=== PATIENT | male | born 1975 | race Caucasian/White ===

== ENCOUNTER 2022-06-28 14:46 | Outpatient (CLI) | payer BC, SELFPAY ==
[2022-06-28 20:00] LABS: Kit Draw Collected
== END 2022-06-28 14:47 | disposition home or self-care (01) ==
LOC: ANHGOSHLAB 14:48
PROVIDERS: PCP Family Medicine; Visit Provider Family Medicine
DX: E78.2 Mixed hyperlipidemia (principal)
CPT/HCPCS: 36415

== ENCOUNTER 2022-08-19 01:22 | Day surgery (SDC) | payer BC, SELFPAY ==
[2022-08-08 11:02] VITALS: BMI 29.0
--- NOTE | 2022-08-19 07:48 | WPDANESEPPF ---
Anes - Initial Pre Proc Eval Procedure: Operation Date: 08/19/22 09:00 Proposed Procedures p Screening Colonoscopy - Edinson Hannon MD Date/Time: 08/19/22 07:48 Surgeon: Edinson Hannon MD Pre Op Diagnosis: neoplasm screening Patient Data Age: 47 Gender: M Height: 1.83 m Weight: 97 kg Allergies Allergy/AdvReac Type Severity Reaction Status Date / Time Penicillins Allergy Unknown hives Verified 08/19/22 08:08 acetaminophen [From Wygesic] AdvReac Nausea and Verified 08/19/22 08:08 Vomiting adhesive tape AdvReac Rash Verified 08/19/22 08:08 propoxyphene [From [facility]gesic] AdvReac Nausea and Verified 08/19/22 08:08 Vomiting Home Medications Medication Instructions Recorded Confirmed Type lansoprazole 15 mg capsule,delayed 15 mg PO DAILY #90 caps 06/28/22 08/19/22 Rx release Patient hx anesthesia problems: none Family hx anesthesia problems: none Results Review: All pre-operative results and documents have been reviewed as part of the pre-operative evaluation. [facility] Past Medical History Medical History (Updated 08/19/22 @ 07:48 by Nura Zimmerman DO) Gastro-esophageal reflux disease without esophagitis Lung collapse teenager. bilateral/ sclerosing Social History Social History (Updated 06/28/22 @ 18:45 by Elena Fernandez MD) Smoking status: Former smoker Tobacco type: cigarettes Alcohol intake: never Substance use: never Lack of Transportation: No Lack of Food: Never True Current Housing: I Have Housing Concerned About Future Housing: No Difficulty Paying Gas/Electric Bills: No Difficulty Paying for Meds: No Currently Unemployed: No Education: Associate Degree Difficulty w/ Childcare or Family Care: No Living arrangements: with family Spiritual care concerns: No Anes - Eval Final PreProcedure Day of Procedure 08/19/22 07:48 Patient weight: overweight Heart: regular rate and rhythm Lungs: clear to auscultation Airway: Mallampati scale class II Neurological: alert and oriented Last oral intake: >/= 8 hours ASA classification: II Emergent: no Anesthetic plan: proceed Anesthesia type and monitoring: general GIVS and standard monitoring Results Review: All pre-operative results and documents have been reviewed as part of the pre-operative evaluation. Informed Consent: The patient's anesthetic plan and its attendant risks and benefits were discussed with the patient/family/POA. Questions were solicited and answers provided to the satisfaction of the patient/family/POA.
[2022-08-19 08:09] VITALS: BP 141/101; PULSE 70; RESP 16; TEMP 36.2; O2SAT 100; BMI 28.3
[2022-08-19] MEDS: LACTATED RINGERS 1,000 ML 150 ML IV CONT (08:19)
--- NOTE | 2022-08-19 08:49 | PM.HPGS ---
History of Present Illness History of Present Illness Consent: Risks, benefits, and alternatives have been discussed and questions answered. Patient agrees to proceed with procedure. Chief complaint: neoplasm screening Narrative: Prosper Merrill is a 47 year old male here for first screening colonoscopy Review of Systems Constitutional: Constitutional: Denies headache(s) and Denies weakness Eyes: Eyes: Denies blurry vision ENT: Reports Normal hearing present, Denies headache(s) and Denies neck pain Cardiovascular: Cardiovascular: Denies chest pain and Denies dyspnea Respiratory: Respiratory: Denies dyspnea Gastrointestinal: Gastrointestinal: Reports no additional gastrointestinal complaints Genitourinary: Genitourinary: Denies dysuria Musculoskeletal: Musculoskeletal: Denies neck pain Integumentary/Breasts: Skin/Breast: Denies dry skin Neurologic: Reports Normal hearing present, Denies headache(s) and Denies weakness Psychiatric: Psychiatric: Denies anxiety Endocrine: Endocrine: Denies change in body appearance Hematologic/Lymphatic: Hematologic/Lymphatic: Denies easy bleeding Allergic/Immunologic: Allergic/Immunologic: Denies urticaria PMFSH Past Medical History Medical History (Updated 08/19/22 @ 08:51 by Edinson Hannon MD) Colon cancer screening Gastro-esophageal reflux disease without esophagitis Lung collapse teenager. bilateral/ sclerosing Social History Social History (Updated 06/28/22 @ 18:45 by Elena Frenandez MD) Smoking status: Former smoker Tobacco type: cigarettes Alcohol intake: never Substance use: never Lack of Transportation: No Lack of Food: Never True Current Housing: I Have Housing Concerned About Future Housing: No Difficulty Paying Gas/Electric Bills: No Difficulty Paying for Meds: No Currently Unemployed: No Education: Associate Degree Difficulty w/ Childcare or Family Care: No Living arrangements: with family Spiritual care concerns: No Meds Home Medications and Allergies Home Medications Medication Instructions Recorded Confirmed Type lansoprazole 15 mg capsule,delayed 15 mg PO DAILY #90 caps 06/28/22 08/19/22 Rx release Allergies Allergy/AdvReac Type Severity Reaction Status Date / Time Penicillins Allergy Unknown hives Verified 08/19/22 08:08 acetaminophen [From Wygesic] AdvReac Nausea and Verified 08/19/22 08:08 Vomiting adhesive tape AdvReac Rash Verified 08/19/22 08:08 propoxyphene [From Wygesic] AdvReac Nausea and Verified 08/19/22 08:08 Vomiting Vital Signs Vital Signs - 24 hr 08/19/22 08:09 Temperature 97.1 F L Pulse Rate 70 Respiratory Rate 16 Blood Pressure 141/101 H Pulse Oximetry 100 Oxygen Delivery Room Air Exam Const: General: comfortable and no acute distress HENMT: Face/Nose/Sinus: Normal nares present Eyes: General: appearance normal, both eyes and all related structures Neck: Neck: no JVD Resp: Auscultation: clear to auscultation bilaterally Cardio: Rate: regular rate Rhythm: regular rhythm GI: Inspection: non-distended GI Palp: Yes Soft to palpation Skin: General skin exam: normal color Neuro: General: gait normal Speech: normal speech Extrem: General: normal to inspection Psych: Mental Status: mental status grossly normal Assessment and Plan Assessment and plan (1) Colon cancer screening: Code(s): Z12.11 - Encounter for screening for malignant neoplasm of colon Status: Acute Assessment and Plan: colonoscopy
[2022-08-19 09:10] VITALS: BP 97/68; PULSE 84; RESP 19; O2SAT 93
[2022-08-19 09:20] VITALS: BP 106/74; PULSE 83; RESP 19; O2SAT 92
[2022-08-19 09:26] VITALS: BP 127/84; PULSE 73; RESP 22; O2SAT 98
== END 2022-08-19 09:38 | disposition home or self-care (01) ==
PROVIDERS: PCP Family Medicine; Visit Provider Internal Medicine Gastroenterology
PROC: 0DJD8ZZ Inspection of Lower Intestinal Tract, Via Natural or Artificial Opening Endoscopic (ICD-10-PCS; CPT 45378; principal; 2022-08-19 09:00)
DX: Z12.11 Encounter for screening for malignant neoplasm of colon (principal); D12.2 Benign neoplasm of ascending colon; K64.8 Other hemorrhoids; K21.9 Gastro-esophageal reflux disease without esophagitis; Z87.891 Personal history of nicotine dependence
CPT/HCPCS: 45385; 88305; J2704; J7120

== ENCOUNTER → 2022-11-04 08:57 | Outpatient (CLI) | payer BC, SELFPAY ==
--- NOTE | ~2022-11-04 | XR_ITS ---
EXAMINATION: XR foot RT min 3V DATE: 11/04/2022 09:07 INDICATION: Right foot pain. TECHNIQUE: 4 views of right foot were obtained. COMPARISON: None. FINDINGS: Bone alignment is normal. No fracture. There is mild osteoarthritis of first metatarsophala ngeal joint and some of the interphalangeal joints and talonavicular joint. There is an enthesophyte at posterior aspect of calcaneal tuberosity. IMPRESSION: 1. Mild polyarticular osteoarthritis. Reviewed, dictated and finalized at location A.
== END ==
PROVIDERS: PCP Family Medicine; Visit Provider Physician Assistant
DX: M10.9 Gout, unspecified (principal); M19.071 Primary osteoarthritis, right ankle and foot
CPT/HCPCS: 73630

== ENCOUNTER → 2023-02-17 10:47 | Outpatient (CLI) | payer BC, SELFPAY ==
--- NOTE | ~2023-02-17 | US_ITS ---
Renal-Bladder ultrasound Clinical History: Abdominal pain Technique: Real-time sonographic imaging of the kidneys and urinary bladder was performed. Findings: The right kidney measures 12.0 cm in length and the left kidney measures 11.7 cm. There is no hydronephrosis or renal calculus identified. Renal cortical echogenicity is within normal limits. No renal mass lesion is identified. The urinary bladder is moderately distended at the time of this exam. No intraluminal echoes are iden tified. No abnormal wall thickening is seen. Prostate gland probably mildly enlarged. Small to gallbladder sludge incidentally noted. Impression: Unremarkable ultrasound of the kidneys and urinary bladder. Probable mildly enlarged prostate gland. Small amount of gallbladder sludge noted. Reviewed, dictated and finalized at location . Impression: Unremarkable ultrasound of the kidneys and urinary bladder. Probable mildly enlarged prostate gland. Small amount of gallbladder sludge noted.
== END ==
PROVIDERS: Visit Provider Nurse Practitioner Family
DX: R10.9 Unspecified abdominal pain (principal); Z87.442 Personal history of urinary calculi
CPT/HCPCS: 76775

== ENCOUNTER 2024-06-25 11:08 | Outpatient (CLI) | payer BC, SELFPAY ==
--- OUTSIDE RECORDS SUMMARY | 2024-06-25 12:18 | XMS_ITS | Patient Health Summary ---
Author Organization [facility] Address [address] [place] [address] Care Team Providers Care Tobacco Curer Name Role Phone Elena Fernandez MD Primary Care Provider [phone] [phone] Note from [facility],non-owned Affiliates and Associated Physician Practices is amultiple site organization consisting of ambulatory clinics and hospital sitesin [place], [place], [place] and [place]. This disclosure is being madepursuant to the Care Everywhere program and may not contain all information available regarding this patient. Last updated 18.[facility] Allergies * Penicillins(Rash) -Medium Criticality Medications * Be aware that medications may not be up to date on this document. Alwaysverify current medications with the patient. * Lansoprazole (PREVACID PO) * benzonatate (TESSALON) 200 MG capsule(Started 07/22/2018) Take 1 capsule by mouth 3 times daily as needed for Cough * fluticasone propionate (FLONASE) 50 MCG/ACT nasal spray(Started 07/22/2018) [place] 2 sprays into each nostril once daily Social History Tobacco Use Types Packs/Day Years Used Date Smoking Tobacco: Former Smokeless Tobacco: Never Comments:stopped 2014 Sex and Gender Information Value Date Recorded Sex Assigned at Not on file Gender Identity Not on file Sexual Orientation Not on file Last Filed Vital Signs Vital Sign Reading Time Taken Comments Blood Pressure 150/100 07/22/2018 10:53 AM TIMBER HARVESTER OPERATOR Pulse 81 07/22/2018 10:24 AM TIMBER HARVESTER OPERATOR Temperature 36.6 ??C (97.9 ??F) 07/22/2018 10:[address] Respiratory Rate 16 07/22/2018 10:24 AM TIMBER HARVESTER OPERATOR Oxygen Saturation 98% 07/22/2018 10:24 AM TIMBER HARVESTER OPERATOR Inhaled Oxygen Concentration - - Weight 90.7 kg (200 lb) 07/22/2018 10:24 AM TIMBER HARVESTER OPERATOR Height 185.4 cm (6' 1 ) 07/22/2018 10:24 AM TIMBER HARVESTER OPERATOR Body Mass Index 26.39 07/22/2018 10:24 AM TIMBER HARVESTER OPERATOR Procedures * INFLUENZA A+B - POINT OF CARE (AMB)(Performed 07/22/2018) Performed for Upper respiratory tract infection, unspecified type * STREP A SCREEN - POINT OF CARE (AMB) STL(Performed 07/22/2018) Performed for Upper respiratory tract infection, unspecified type Results * INFLUENZA A+B - POINT OF CARE (AMB) (07/22/2018 10:36 AM TIMBER HARVESTER OPERATOR) Influenza A Antigen Rapid Negative Negative Influenza B Antigen Rapid Negative Negative Influenza Internal Control positive NEGATIVE - POSITIVE Influenza Lot Number [id number] Influenza Expiration Date Other NASOPHARYNGEAL SWAB / Unknown 07/22/2018 10:36 AM TIMBER HARVESTER OPERATOR [facility] - POINT OF CA RE ORDERABLES * STREP A SCREEN (07/22/2018 10:35 AM TIMBER HARVESTER OPERATOR) Strep A Rapid POCT Negative Negative Strep A Internal Control Present Lot # [id number] Expiration Date Throat ENTIRE THROAT (SURFACE REGION OF NECK) / Unknown 07/22/2018 10:35 AM TIMBER HARVESTER OPERATOR Shanelle Nation APRN-ELECTRIC MOTOR ASSEMBLER AND TESTER LAB - POINT OF CA RE ORDERABLES Care Teams Tobacco Curer Relationship Specialty Start Date End Date Elena Fernandez MD [address] [place] [id number] PCP - General 09/12/22
--- OUTSIDE RECORDS SUMMARY | 2024-06-25 12:18 | XMS_ITS | Referral Summary ---
Author Organization [facility] Address [address] [place] [address] Care Team Providers Care Tube Pusher Name Role Phone Elena Fernandez MD Primary Care Provider [phone] [phone] Source Comments [facility] and Associated Physician Practices is amultiple site organization consisting of ambulatory clinics and hospital sitesin [place], [place] and [place]. This disclosure is being madepursuant to the Care Everywhere program and may not contain all information available regarding this patient. Last updated 18.[facility] [employer] Allergies Active Allergy Reactions Criticality Noted Date Comments Penicillins Rash Medium 07/22/2018 Medications * Be aware that medications may not be up to date on this document. Alwaysverify current medications with the patient. Medication Sig Dispensed Refills Start Date End Date Status Lansoprazole (PREVACID PO) Active benzonatate (TESSALON) 200 MG capsuleIndications:Up per respiratory tract infection, unspecified type Take 1 capsule by mouth 3 times daily as needed for Cough 30 capsule 07/22/2018 Active fluticasone propionate (FLONASE) 50 MCG/ACT nasal spray [place] 2 sprays into each nostril once daily 1 bottles 07/22/2018 Active Social History Tobacco Use Types Packs/Day Years Used Date Smoking Tobacco: Former Smokeless Tobacco: Never Comments:stopped 2014 Sex and Gender Information Value Date Recorded Sex Assigned at Not on file Gender Identity Not on file Sexual Orientation Not on file Last Filed Vital Signs Vital Sign Reading Time Taken Comments Blood Pressure 150/100 07/22/2018 10:53 AM COUPLER Pulse 81 07/22/2018 10:24 AM COUPLER Temperature 36.6 ??C (97.9 ??F) 07/22/2018 10:[address] Respiratory Rate 16 07/22/2018 10:24 AM COUPLER Oxygen Saturation 98% 07/22/2018 10:24 AM COUPLER Inhaled Oxygen Concentration - - Weight 90.7 kg (200 lb) 07/22/2018 10:24 AM COUPLER Height 185.4 cm (6' 1 ) 07/22/2018 10:24 AM COUPLER Body Mass Index 26.39 07/22/2018 10:24 AM COUPLER Plan of Treatment Not on file Care Teams Tube Pusher Relationship Specialty Start Date End Date Elena Fernandez MD [address] [place] [phone] PCP - General 09/12/22
--- OUTSIDE RECORDS SUMMARY | 2024-06-25 12:18 | XMS_ITS | Clinical Summary ---
Author Organization [facility] [employer] Address [address] [place] [address] Care Team Providers Care Insurance Territory Manager Name Role Phone Elena Fernandez MD Primary Care Provider [phone] [phone] Source Comments [facility] and Associated Physician Practices is amultiple site organization consisting of ambulatory clinics and hospital sitesin [place], [place], [place]. This disclosure is being madepursuant to the Care Everywhere program and may not contain all information available regarding this patient. Last updated 18.[facility] [employer] Allergies Active Allergy Reactions Criticality Noted Date [...] fluticasone propionate (FLONASE) 50 MCG/ACT nasal spray [place] 2 sprays into each nostril once daily [...] Comments Blood Pressure 150/100 07/22/2018 10:53 AM CABLE TESTERS HELPER Pulse 81 07/22/2018 10:24 AM CABLE TESTERS HELPER Temperature 36.6 ??C (97.9 ??F) 07/22/2018 10:[address] Respiratory Rate 16 07/22/2018 10:24 AM CABLE TESTERS HELPER Oxygen Saturation 98% 07/22/2018 10:24 AM CABLE TESTERS HELPER Inhaled Oxygen Concentration - - Weight 90.7 kg (200 lb) 07/22/2018 10:24 AM CABLE TESTERS HELPER Height 185.4 cm (6' 1 ) 07/22/2018 10:24 AM CABLE TESTERS HELPER Body Mass Index 26.39 07/22/2018 10:24 AM CABLE TESTERS HELPER Plan of Treatment Health Maintenance Due Date Last Done Comments COLOGUARD (AGES 45-75) - COL ON CA SCREENING 1973 COLON MONITORING 1973 COLONOSCOPY - COLON CA SCREENING 1973 CT COLONOGRAPHY - COLON CA SCREENING 1973 Colorectal Cancer Screening 1973 FIT - COLON CA SCREENING 1973 FLEX SIG - COLON CA SCREENING 1973 LIPID TESTING 1973 HIV SCREENING 1988 HEPATITIS C SCREENING 05/05/1991 DTAP/TDAP/TD VACCINES (1 - Tdap) 1992 HEPATITIS B VACCINE (1 of 3 - 19+ 3-dose series) 1992 SCREENING FOR DIABETES 07/22/2018 PNEUMOCOCCAL VACCINE 50+ (1 of 1 - PCV) 2023 ZOSTER VACCINE (1 of 2) 2023 COVID-19 VACCINE (1 - 2023-2 5 season) 2024 INFLUENZA VACCINE (#1) 2024 DEPRESSION SCREENING 05/29/2024 HIB VACCINE Aged Out No longer eligi ble based on patient's age to complete this topic HPV VACCINE Aged Out No longer eligi ble based on patient's age to complete this topic MENINGOCOCCAL (Group B) VACCINE Aged Out No longer eligible based on patient's age to complete this topic MENINGOCOCCAL VACCINE Aged Out No daniel edith eligible based on patient's age to complete this topic PNEUMOCOCCAL VACCINE Aged Out No long er eligible based on patient's age to complete this topic Care Teams Insurance Territory Manager Relationship Specialty Start Date End Date Elena Fernandez MD [address] [place] [phone] PCP - General 09/12/22
[2024-06-25 13:34] LABS: Basophils Percent Auto 0.4 % (0.2-1.2); Eosinophils Absolute Auto 0.3 K/mm3 (0-0.3); Eosinophils Percent Auto 2.6 % (0-4.4); Hematocrit 49.3 % (42.0-52.0); Hemoglobin 16.5 g/dL (14.0-18.0); Immature Granulocyte Absolute 0.04 K/mm3 (0.00-0.031); Immature Granulocyte Percent A 0.4 % (0-0.5); Lymphocytes Absolute Auto 2.29 K/mm3 (0.9-3.2); Lymphocytes Percent Auto 22.9 % (18.3-44.2); Mean Corpuscular HGB Conc 33.5 g/dl (32-36); Mean Corpuscular Hemoglobin 30.4 pg (26-34); Mean Platelet Volume 11.2 fl (7.4-10.4); Monocytes Absolute Auto 0.7 K/mm3 (0.1-0.6); Monocytes Percent Auto 6.5 % (2.6-8.5); Neutrophils Absolute Auto 6.7 K/mm3 (1.3-6.7); Neutrophils Percent Auto 67.2 % (45.5-73.1); Platelet Count Result 260 k/mm3 (150-375); Red Blood Count 5.42 M/mm3 (4.6-6.20); Red Cell Distribution Width 12.5 % (11.5-14.5)
[2024-06-25 14:42] LABS: Alanine Aminotransferase 85 U/L (6-50); Albumin Level 4.6 g/dL (3.5-5.1); Alkaline Phosphatase 94 U/L (38-126); Anion Gap 11 mmol/L (4-12); Aspartate Amino Transferase 58 U/L (17-59); Blood Urea Nitrogen 13 mg/dL (9-20); Calcium 9.4 mg/dL (8.4-10.2); Carbon Dioxide 27 mmol/L (22-30); Chloride 103 mmol/L (98-107); Cholesterol 216 mg/dL (0-200); Estimated Glomerular Filt Rate > 60; Glucose 84 mg/dL (65-110); HDL Direct 27 mg/dL; Potassium 4.1 mmol/L (3.4-5.0); Sodium 141 mmol/L (137-145); Triglycerides 291 mg/dL (<150); Uric Acid 7.7 mg/dL (3.5-8.5)
[2024-06-25 14:53] LABS: LDL Cholesterol Direct 134 mg/dL
[2024-06-25 15:24] LABS: Hepatitis C Virus Antibody Negative (Negative)
[2024-06-28 13:13] LABS: Thyroid Peroxidase Antibodies <1 IU/mL (<9)
== END 2024-06-25 11:09 | disposition home or self-care (01) ==
LOC: ANHGOSHLAB 11:09
PROVIDERS: PCP Family Medicine; Visit Provider Family Medicine
DX: E78.2 Mixed hyperlipidemia (principal); R79.89 Other specified abnormal findings of blood chemistry; M10.9 Gout, unspecified; Z11.59 Encounter for screening for other viral diseases
CPT/HCPCS: 36415; 80053; 80061; 84443; 84550; 85025; 86376; 86803

== ENCOUNTER 2025-03-13 08:25 | Outpatient (CLI) | payer BC, SELFPAY ==
--- OUTSIDE RECORDS SUMMARY | 2025-03-13 08:35 | XMS_ITS | Clinical Summary ---
Author Organization [facility] [employer] Address [address] [place] [address] Care Team Providers Care Rug Clipper Name Role Phone Elena Fernandez MD Primary Care Provider [phone] [phone] Source Comments [facility] and Associated Physician Practices is amultiple site organization consisting of ambulatory clinics and hospital sitesin [place], [place], [place] and [place]. This disclosure is being madepursuant to the Care Everywhere program and may not contain all information available regarding this patient. Last updated 18.[facility] [employer] Allergies Active Allergy Reactions Criticality Noted Date Comments Penicillins Rash Medium 07/22/2018 Medications * Be aware that medications may not be up to date on this document. Alwaysverify current medications with the patient. Lansoprazole (PREVACID PO) Active benzonatate (TESSALON) 200 MG capsuleIndicatio ns:Upper respiratory tract infection, unspecified type Take 1 capsule by mouth 3 times daily as needed for Cough 30 capsule 07/22/2018 Active fluticasone propionate (FLONASE) 50 MCG/ACT nasal spray [place] 2 sprays into each nostril once daily 1 bottles 07/22/2018 Active Social History Tobacco Use Types Packs/Day Years Used Date Smoking Tobacco: Former Smokeless Tobacco: Never Comments:stopped 2014 Sex and Gender Information Value Date Recorded Sex Assigned at Not on file Legal Sex Male 10:04 AM SENIOR MEDICAL DIRECTOR Gender Identity Not on file Sexual Orientation Not on file Last Filed Vital Signs Vital Sign Reading Time Taken Comments Blood Pressure 150/100 07/22/2018 10:53 AM SENIOR MEDICAL DIRECTOR Pulse 81 07/22/2018 10:24 AM SENIOR MEDICAL DIRECTOR Temperature 36.6 C (97.9 F) 07/22/2018 10:24 AM SENIOR MEDICAL DIRECTOR Respiratory Rate 16 07/22/2018 10:24 AM SENIOR MEDICAL DIRECTOR Oxygen Saturation 98% 07/22/2018 10:24 AM SENIOR MEDICAL DIRECTOR Inhaled Oxygen Concentration - - Weight 90.7 kg (200 lb) 07/22/2018 10:24 AM SENIOR MEDICAL DIRECTOR Height 185.4 cm (6' 1) 07/22/2018 10:24 AM SENIOR MEDICAL DIRECTOR Body Mass Index 26.39 07/22/2018 10:24 AM SENIOR MEDICAL DIRECTOR Plan of Treatment Health Maintenance Due Date [...] 2023 ZOSTER VACCINE (1 of 2) 2023 DEPRESSION SCREENING 05/29/2024 COVID-19 VACCINE (1 - 2023-2 5 season) 2025 INFLUENZA VACCINE (#1) 2025 HIB VACCINE Aged Out No longer eligi ble based on patient's age to complete this topic HPV VACCINE Aged Out No longer eligi ble based on patient's age to complete this topic MENINGOCOCCAL (Group B) VACC INE SHARED DECISION-MAKING Aged Out No longer eligibl e based on patient's age to complete this topic MENINGOCOCCAL GROUPS A/C/Y/W VACCINE Aged Out No longer eligible b ased on patient's age to complete this topic Insurance [facility] Care Teams Rug Clipper Relationship Specialty Start Date End Date Elena Fernandez MD [address] [place] [phone] PCP - General 09/12/22
[2025-03-13 19:53] LABS: Alanine Aminotransferase 107 U/L (6-50); Albumin Level 4.6 g/dL (3.5-5.1); Alkaline Phosphatase 91 U/L (38-126); Anion Gap 11 mmol/L (4-12); Aspartate Amino Transferase 67 U/L (17-59); Bilirubin,Total 0.9 mg/dL (0.2-1.3); Blood Urea Nitrogen 13 mg/dL (9-20); Calcium 9.2 mg/dL (8.4-10.2); Carbon Dioxide 24 mmol/L (22-30); Chloride 104 mmol/L (98-107); Cholesterol 240 mg/dL (0-200); Estimated Glomerular Filt Rate > 60; Glucose 80 mg/dL (65-110); HDL Direct 27 mg/dL; Potassium 3.6 mmol/L (3.4-5.0); Sodium 139 mmol/L (137-145); Total Protein 7.7 g/dL (6.3-8.2); Triglycerides 236 mg/dL (<150); Uric Acid 4.1 mg/dL (3.5-8.5)
== END 2025-03-13 08:26 | disposition home or self-care (01) ==
LOC: ANHGOSHLAB 08:26
PROVIDERS: PCP Family Medicine; Visit Provider Student in an Organized Health Care Education/Training Program
DX: R03.0 Elevated blood-pressure reading, without diagnosis of hypertension (principal); E78.2 Mixed hyperlipidemia; M10.9 Gout, unspecified
CPT/HCPCS: 36415; 80053; 80061; 84550

== ENCOUNTER 2025-04-01 08:24 | Outpatient (CLI) | payer BC, SELFPAY ==
--- OUTSIDE RECORDS SUMMARY | 2025-04-01 08:46 | XMS_ITS | Clinical Summary ---
Author Organization [facility] [employer] Address [address] [place] [address] Care Team Providers Care Dot Compliance Specialist Name Role Phone Elena Fernandez MD Primary Care Provider [phone] [phone] Source Comments [facility] and Associated Physician Practices is amultiple site organization consisting of ambulatory clinics and hospital sitesin [place], [place], [place] and [place]. This disclosure is being madepursuant to the Care Everywhere program and may not contain all information available regarding this patient. Last updated 18.[facility] [employer] Allergies Active Allergy Reactions Criticality Noted Date [...] fluticasone propionate (FLONASE) 50 MCG/ACT nasal spray [place] 2 sprays into each nostril once daily 1 bottles 07/22/2018 Active Social History Tobacco Use Types Packs/Day Years Used Date Smoking Tobacco: Former Smokeless Tobacco: Never Comments:stopped 2014 Sex and Gender Information Value Date Recorded Sex Assigned at Not on file Legal Sex Male 10:04 AM BATCH ANALYST Gender Identity Not on file Sexual Orientation Not on file Last Filed Vital Signs Vital Sign Reading Time Taken Comments Blood Pressure 150/100 07/22/2018 10:53 AM BATCH ANALYST Pulse 81 07/22/2018 10:24 AM BATCH ANALYST Temperature 36.6 C (97.9 F) 07/22/2018 10:24 AM BATCH ANALYST Respiratory Rate 16 07/22/2018 10:24 AM BATCH ANALYST Oxygen Saturation 98% 07/22/2018 10:24 AM BATCH ANALYST Inhaled Oxygen Concentration - - Weight 90.7 kg (200 lb) 07/22/2018 10:24 AM BATCH ANALYST Height 185.4 cm (6' 1) 07/22/2018 10:24 AM BATCH ANALYST Body Mass Index 26.39 07/22/2018 10:24 AM BATCH ANALYST Plan of Treatment Health Maintenance Due Date [...] patient's age to complete this topic Insurance [facility] Care Teams Dot Compliance Specialist Relationship Specialty Start Date End Date Elena Fernandez MD [address] [place] [phone] PCP - General 09/12/22
[2025-04-01 13:10] LABS: Hematocrit 50.7 % (42.0-52.0); Hemoglobin 16.7 g/dL (14.0-18.0); Immature Granulocyte Percent A 0.3 % (0-0.5); Lymphocytes Absolute Auto 2.14 K/mm3 (0.9-3.2); Mean Corpuscular HGB Conc 32.9 g/dl (32-36); Mean Corpuscular Hemoglobin 30.5 pg (26-34); Mean Corpuscular Volume 92.7 fl (80-100); Nucleated Red Blood Cells Absolute Auto 0.000 K/mm3 (0.0-0.012); Nucleated Red Blood Cells Perc 0.0 % (0.0-0.2); Platelet Count Result 272 k/mm3 (150-375); Red Blood Count 5.47 M/mm3 (4.6-6.20); White Blood Count 5.8 K/mm3 (4.5-10.0)
[2025-04-01 13:14] LABS: Alanine Aminotransferase 84 U/L (6-50); Albumin Level 4.9 g/dL (3.5-5.1); Alkaline Phosphatase 84 U/L (38-126); Anion Gap 8 mmol/L (4-12); Aspartate Amino Transferase 75 U/L (17-59); Bilirubin,Total 0.8 mg/dL (0.2-1.3); Blood Urea Nitrogen 14 mg/dL (9-20); Calcium 9.5 mg/dL (8.4-10.2); Carbon Dioxide 28 mmol/L (22-30); Chloride 103 mmol/L (98-107); Cholesterol 235 mg/dL (0-200); Estimated Glomerular Filt Rate > 60; Glucose 80 mg/dL (65-110); HDL Direct 28 mg/dL; Potassium 3.9 mmol/L (3.4-5.0); Sodium 139 mmol/L (137-145); Total Protein 8.0 g/dL (6.3-8.2); Triglycerides 156 mg/dL (<150); Uric Acid 4.5 mg/dL (3.5-8.5)
[2025-04-01 13:50] LABS: Thyroid Stimulating Hormone 3.060 uIU/mL (0.465-4.680)
== END 2025-04-01 08:25 | disposition home or self-care (01) ==
LOC: ANHGOSHLAB 08:26
PROVIDERS: PCP Family Medicine; Visit Provider Family Medicine
DX: Z11.59 Encounter for screening for other viral diseases (principal); R79.89 Other specified abnormal findings of blood chemistry; E78.2 Mixed hyperlipidemia; M10.9 Gout, unspecified
CPT/HCPCS: 36415; 80053; 80061; 84443; 84550; 85025; 86376; 86803

== ENCOUNTER 2025-04-07 06:46 | Outpatient (CLI) | payer BC, SELFPAY ==
--- NOTE | ~2025-04-07 | US_ITS ---
LIMITED ABDOMINAL ULTRASOUND INDICATION: R79.89 - Other specified abnormal findings of blood chemi... COMPARISON: None. FINDINGS: Liver: Echogenic, attenuating the sound beam, most likely secondary to fatty infiltration. This limits evaluation for small lesions. There is normal directional flow in the portal vein. Common bile duct: Normal in size. Gallbladder: The gallbladder wall is normal in thickness. There is gallbladder sludge. Gonzalez's sign: Negative Pancreas: The imaged portions appear normal. Right kidney: Right kidney appears normal on the images provided. IMPRESSION: Gallbladder sludge. Markedly echogenic liver, most likely secondary to fatty infiltrate. Reviewed, dictated and finalized at location A. GER MANAGEMENT IMPRESSION: Gallbladder sludge. Markedly echogenic liver, most likely secondary to fatty in filtrate.
--- NOTE | ~2025-04-07 | CT_ITS ---
EXAMINATION:CT lung screening DATE: 04/07/2025 07:08 INDICATION: Personal history of nicotine dependence. Encounter for screening for malignant neoplasm of respiratory organs. TECHNIQUE: Computed tomography (CT) of the chest was performed without intravenous contrast. Automated exposure control and iterative reconstruction technique were employed. The dose-length product (DLP) was 155.24 mGy-cm. COMPARISON: CT abdomen and pelvis 02/11/2013 FINDINGS: There is moderate emphysema. There is mild scarring at the lung apices. A calcified left lung nodule is consistent with old granulomatous disease. No pleural effusion. The heart size is normal. No pericardial effusion. There is diffuse hepatic steatosis. There is thoracic dextroscoliosis. IMPRESSION: 1. Lung-RADS category 2: Benign appearance or behavior. Continue annual screening with noncontrast low-dose chest CT in 12 months. Reviewed, dictated and finalized at location E. LINE FIELD OPERATOR IMPRESSION: 1. Lung-RADS category 2: Benign appearance or behavior. Continue annual screeni ng with noncontrast low-dose chest CT in 12 months.
== END 2025-04-07 06:47 | disposition home or self-care (01) ==
PROVIDERS: PCP Family Medicine; Visit Provider Family Medicine
DX: Z12.2 Encounter for screening for malignant neoplasm of respiratory organs (principal); Z87.891 Personal history of nicotine dependence; R79.89 Other specified abnormal findings of blood chemistry
CPT/HCPCS: 71271; 76705